=== PATIENT | male | born 1990 | race Caucasian/White ===

== ENCOUNTER 2017-01-18 12:44 | Emergency (ER) | payer OTHER | END 2017-01-18 14:25 | disposition home or self-care (01) | LOC: FER 12:44 | DX: J02.0 Streptococcal pharyngitis (principal) | CPT/HCPCS: 87450; 87804; 87899; J0561 ==

== ENCOUNTER 2020-10-12 16:59 | Emergency (ER) | payer OTHER ==
[~2020-10-12 16:59] MED LIST: BACTRIM DS TAB1 EACH PO; FLEXERIL10 MG PO; IBUPROFEN800 MG PO; ILOTYCIN1 GM OS; KEFLEX250 MG PO; MEDROL 4MG DOSEP4 MG PO; NORCO 5-325 TA1 EACH PO; ONDANSETRON ODT4 MG PO; VIBRAMYCIN100 MG PO
== END 2020-10-12 18:05 | disposition home or self-care (01) ==
LOC: FER 16:59
DX: S93.402A Sprain of unspecified ligament of left ankle, initial encounter (principal); X50.1XXA Overexertion from prolonged static or awkward postures, initial encounter; Y92.009 Unspecified place in unspecified non-institutional (private) residence as the place of occurrence of the external cause; Z88.0 Allergy status to penicillin
CPT/HCPCS: 99283

== ENCOUNTER 2020-12-12 10:46 | Emergency (ER) | payer OTHER ==
[2020-12-12] MEDS ORDERED: CEPHALEXIN500 MG PO (13:04)
== END 2020-12-12 13:50 | disposition home or self-care (01) ==
LOC: FER 10:46
DX: S01.111A Laceration without foreign body of right eyelid and periocular area, initial encounter (principal); S93.402A Sprain of unspecified ligament of left ankle, initial encounter; Z88.0 Allergy status to penicillin; Z79.899 Other long term (current) drug therapy; Y04.2XXA Assault by strike against or bumped into by another person, initial encounter
CPT/HCPCS: 73590; 73610; J1885

== ENCOUNTER 2021-02-18 01:52 | Emergency (ER) | payer OTHER ==
[~2021-02-18 01:52] MED LIST changes: +CEPHALEXIN500 MG PO
[2021-02-19 05:06] LABS: HIV SCREEN 4TH GENERATION WRFX Non Reactive (Non Reactive)
[2021-02-20 09:11] LABS: CHLAMYDIA TRACHOMATIS, NAA Negative (Negative); NEISSERIA GONORRHOEAE, NAA Negative (Negative)
== END 2021-02-18 02:40 | disposition home or self-care (01) ==
LOC: FER 01:52
PROVIDERS: Emergency Medicine
DX: N48.89 Other specified disorders of penis (principal); F20.9 Schizophrenia, unspecified; F17.200 Nicotine dependence, unspecified, uncomplicated
CPT/HCPCS: 86593; 86803; 87389; 87491; 87591; 99283

== ENCOUNTER 2021-04-07 14:16 | Emergency (ER) | payer OTHER ==
[2021-04-07 17:41] LABS: BASOPHIL 0.9 % (0-2); EOSINOPHIL 1.8 % (0-5); HCT 46.1 % (42.0-52.0); HGB 15.2 g/dl (13.2-18.0); LYMPHOCYTE 31.2 % (15-48); MCH 29.9 pg (25.0-31.0); MCV 90.6 fL (78.0-100.0); MONOCYTE 13.1 % (0-12); MPV 8.9 fL (6.0-9.5); NEUTROPHIL 52.4 % (41-80); NRBC 0; PLT 285 K/uL (150-400); RBC 5.09 M/uL (4.70-6.00); RDW 13.6 % (11.5-14.0); WBC 7.9 K/uL (4.0-10.5)
[2021-04-07 18:03] LABS: BILIRUBIN NEGATIVE (NEGATIVE); BLOOD TRACE-INTACT Ery/uL (NEGATIVE); CLARITY CLEAR (CLEAR); COLOR YELLOW (YELLOW); GLUCOSE (U) NORMAL (NORMAL); LEUKOCYTES NEGATIVE Leu/uL (NEGATIVE); NITRITE NEGATIVE (NEGATIVE); PROTEIN NEGATIVE (NEGATIVE); UROBILINOGEN 0.2 mg/dL (0.2-1.0); pH 6.5 (5.0-9.0)
[2021-04-07 18:06] LABS: AMPHETAMINES NEGATIVE (NEGATIVE); BARBITURATES NEGATIVE (NEGATIVE); ECSTASY (MDMA) NEGATIVE (NEGATIVE); MARIJUANA (THC) POSITIVE (NEGATIVE); METHADONE NEGATIVE (NEGATIVE); OPIATES NEGATIVE (NEGATIVE); OXYCODONE NEGATIVE (NEGATIVE)
[2021-04-07 18:23] LABS: AMORPHOUS URATES CRYSTALS TRACE
[2021-04-07 19:02] LABS: ALBUMIN 3.9 g/dL (3.4-5.0); ALKALINE PHOSHATASE 135 U/L (46-116); ALT 397 U/L (16-63); AST 164 U/L (15-37); BILIRUBIN - TOTAL 0.3 mg/dL (0.2-1.0); BUN 13 mg/dL (7-18); BUN/CREAT RATIO (CALC) 12.9 RATIO; C-REACTIVE PROTEIN < 0.20 mg/dL (<=0.90); CHLORIDE 102 mmol/L (98-107); CO2 (BICARBONATE) 26 mmol/L (21-32); CPK 77 U/L (39-308); CREATININE 1.01 mg/dL (0.67-1.17); GLOBULIN (CALCULATION) 3.4 g/dL; GLUCOSE 84 mg/dL (74-106); LDH 186 U/L (85-227); POTASSIUM 4.7 mmol/L (3.5-5.1); TOTAL PROTEIN 7.3 g/dL (6.4-8.2)
[2021-04-07] MEDS ORDERED: NAPROXEN500 MG PO (20:11)
== END 2021-04-07 20:22 | disposition home or self-care (01) ==
LOC: FER 14:16
PROVIDERS: Emergency Medicine
DX: R55 Syncope and collapse (principal); R29.810 Facial weakness; F17.210 Nicotine dependence, cigarettes, uncomplicated; Z88.0 Allergy status to penicillin
CPT/HCPCS: 36415; 70450; 80053; 80305; 81001; 82550; 82728; 83615; 83735; 84145; 84484; 85025; 85379; 86140; 93005; G0480